=== PATIENT | female | born 1985 | race African-American/Black ===

== ENCOUNTER 2017-03-30 11:29 | Emergency (ER) | payer OTHER ==
[~2017-03-30] VITALS: Ht 167.6 cm; Wt 109.5 kg
[~2017-03-30 11:29] MED LIST: AMOX250C GTB; DENIES; PRENATALS
[2017-03-30 11:31] VITALS: Ht 167.6 cm; Wt 109.5 kg
[2017-03-30] MEDS ORDERED: KETOROLAC 30 MG INJ IV STA (12:04)
[2017-03-30] MEDS ORDERED: ONDANSETRON 4 MG INJ IV STA (12:04)
[2017-03-30] MEDS ORDERED: SOD CHLORIDE 0.9% 1,000 ML IV ONE (12:30)
[2017-03-30 12:43] LABS: BASOPHILS % 0.1 % (0.0-2.0); EOSINOPHILS # 0.1 10^3/ul (0.0-0.5); EOSINOPHILS % 0.3 % (0.0-7.0); HEMATOCRIT 39.7 % (37.0-47.0); HEMOGLOBIN 13.7 g/dl (12.0-16.0); LYMPHOCYTES # 2.4 10^3/ul (0.8-2.9); LYMPHOCYTES % 15.7 % (15.0-51.0); MEAN CORPUSCULAR HEMOGLOBIN 29.7 pg (29.0-33.0); MEAN CORPUSCULAR HGB CONC 34.5 g/dl (32.0-37.0); MEAN CORPUSCULAR VOLUME 86.1 fl (82.0-101.0); MONOCYTE # 1.5 10^3/ul (0.3-0.9); MONOCYTES % 9.8 % (0.0-11.0); NEUTROPHIL # 11.2 10^3/ul (1.6-7.5); NEUTROPHILS % 73.7 % (39.0-77.0); PLATELET COUNT 265 10^3/UL (140-415); RED BLOOD COUNT 4.61 10^6/ul (4.20-5.40); RED CELL DISTRIBUTION WIDTH 12.7 % (11.5-14.5); WHITE BLOOD COUNT 15.2 10^3/ul (4.8-10.8)
[2017-03-30 13:06] LABS: ALBUMIN 4.4 g/dl (3.3-4.9); ALBUMIN/GLOBULIN RATIO 1.18; BILIRUBIN,INDIRECT 0.5 mg/dl (0-1.1); BILIRUBIN,TOTAL 0.5 mg/dl (0.2-1.3); CALCIUM 9.2 mg/dl (8.4-10.2); CREATININE 0.75 mg/dl (0.44-1.00); POTASSIUM 3.6 mmol/L (3.5-5.1); TOTAL PROTEIN 8.1 g/dl (6.1-8.1)
[2017-03-30 13:08] LABS: ADD UMIC YES; UR ASCORBIC ACID NEGATIVE (NEGATIVE); UR BACTERIA FEW /HPF (NONE SEEN); UR BILIRUBIN (Dip) NEGATIVE (NEGATIVE); UR BLOOD (Dip) 3+ mg/dL (NEGATIVE); UR CLARITY SLIGHTLY CLOUDY (CLEAR); UR COLOR YELLOW (YELLOW); UR GLUCOSE (Dip) NEGATIVE (NEGATIVE); UR KETONES (Dip) NEGATIVE (NEGATIVE); UR LEUKOCYTE ESTERASE (Dip) 2+ Leu/ul (NEGATIVE); UR NITRITE (Dip) POSITIVE (NEGATIVE); UR RBC 22 /HPF (0-5); UR SPECIFIC GRAVITY (Dip) 1.016 (1.003-1.030); UR SQUAMOUS EPITHELIAL CELL FEW /HPF (FEW); UR TOTAL PROTEIN (Dip) 1+ mg/dl (NEGATIVE); UR UROBILINOGEN (Dip) NEGATIVE (NEGATIVE)
--- NOTE | 2017-03-30 13:52 | RADRPT ---
PROCEDURE: XR Lumbar Spine 3 Views. CLINICAL INDICATION: Low back pain. TECHNIQUE: Lumbar spine study including AP, lateral and coned L5-S1 views was performed. COMPARISON: CT July 15, 2009 FINDINGS: Straightening of the normal lordosis is identified. No fractures are identified. 1.7 cm rounded foc us of sclerosis is identified in the anterior - inferior aspect of the T12 vertebral body. Fusion of the anterior aspects of the T11 and T12 vertebral bodies is identified. Severe narrowing of the T11 -12 intervertebral disc space is seen. The remaining intervertebral disc spaces appear normal. The facet joints are unremarkable. Soft tissues surrounding the spine appear normal. IMPRESSION: Straightening of the normal lordosis. This could be positional in nature. Fusion of the anterior aspects of the T11 and T12 vertebral bodies with associated severe narrowing of the T11-12 intervertebral disc space. Findings are likely sequelae of severe degenerative disc di sease. Overall appearance is similar to prior CT. However, anterior fusion is new. 1.7 cm rounded focus of sclerosis in the anterior inferior aspect of the T12 vertebral body. Finding was present on prior CT from 2009 and this may reflect a large bone island. If further characterization is needed CT or MRI could be helpful. If there is high clinical suspicion for traumatic injury, further evaluation with CT should be consi dered. RPTAT: AA .Delfino Zimmerman MD, Date Time Electronically viewed and signed by .Delfino Zimmerman MD, on 03/30/2017 13:51 .P/
--- NOTE | 2017-03-30 13:53 | RADRPT ---
PROCEDURE: CT Abdomen and pelvis without contrast. CLINICAL INDICATION: Left lower quadrant abdominal pain TECHNIQUE: CT scan of the abdomen and pelvis without contrast was performed on a multidetector hig h-resolution CT scan. . Coronal and sagittal reformatted images were obtained from the axial [facility] e images. Standard CT scan of the abdomen pelvis without contrast protocols were performed. The total exam CTDI equals 23.08 mGy and the total exam DLP equals 1429.14 mGy-cm. One or more of the following dose reduction techniques were used: - Automated exposure control. - Adjustment of the mA and/or kV according to patient size. Use of iterative reconstruction technique. COMPARISON: None. FINDINGS: The kidneys are normal in size without hydronephrosis or intra renal masses bilaterally. There is mi ld bilateral medullary nephrocalcinosis. The addition there is a punctate 1 mm non-obstructing infer ior left renal calcified calculus. No other calcified renal calculi bilaterally. In the mid left ure ter is a punctate 2 mm calcified calculus with minimal dilation of the proximal left ureter. There i s mild left periureteral induration as well as trace fluid in the left posterior pararenal space. Th e more distal left ureter is not optimally visualized but those portions atrophy seen are unremarkab le. No evidence of right ureteral calcified calculi. Urinary bladder is contracted but otherwise unr emarkable. The uterus is anteverted anteflexed but otherwise unremarkable. No adnexal masses. Negative for intr a-abdominal free air free fluid abscesses or lymphadenopathy. The liver spleen pancreas adrenal glands and gallbladder are unremarkable. Negative for biliary duct al dilation. The stomach, small bowel, large bowel and appendix are unremarkable. The aorta is unremarkable. Lung bases are unremarkable. There are degenerative changes lower thoraci c and lumbar spine but no acute osseous findings or osteoblastic/osteolytic lesions. Partial fusion of the anterior T11-T12 disc level. IMPRESSION: 1. In the left mid ureter is a 2 mm calcified calculus with minimal dilatation of the proximal left ureter and left periureteral induration and trace fluid in the left posterior pararenal space. No e vidence of left hydronephrosis. 2. Mild bilateral medullary nephrocalcinosis. Additional punctate non-obstructing inferior left roselia al 1 mm calcified calculus. No evidence of right obstructive uropathy. 3. Unremarkable appendix. No gastrointestinal disease. RPTAT:AAJJ Physician Nuzhat Date Time Electronically viewed and signed by Dorota Martin Physician on 03/30/2017 13:52 BM/
[2017-03-30] MEDS ORDERED: CEFTRIAXONE 1 GM/50 ML (PMX) 50 ML IVPB ONE (14:30)
[2017-03-30] MEDS ORDERED: TAMS-14 PO (14:47)
[2017-03-30] MEDS ORDERED: NAPR-260 PO (14:47)
[2017-03-30] MEDS ORDERED: CIPR500T4 PO (14:52)
[2017-03-30 15:45] VITALS: BP 120/71; PULSE 104; RESP 20; TEMP 98.1
--- NOTE | 2017-03-30 17:01 | ERD ---
ER Documentation Chief Complaint Date/Time DATE: 03/30/17 TIME: 16:46 Chief Complaint COMPLAINS OF ABDOMINAL PAIN x 3 Days HPI 31-year-old female patient with no significant past medical history presents to the ED complaining of left-sided back pain that radiated to her abdomen that started yesterday. Reports that she is also has a fever and chills. States that she has felt nauseous but denies any vomiting. Reports that she also has dysuria. Denies any hematuria, urgency, frequency. States that she has had back pain for 3 years and states that this feels different. Reports that she still has some right-sided back pain that radiates down her right leg and feels like a shooting sensation. States that she has been taking Tylenol and Soma without relief of her symptoms. Denies any vaginal bleeding, vaginal discharge , diarrhea, constipation, chest pain, shortness of breath. Denies any saddle anesthesia, urine or bowel incontinence, urinary retention. ROS All systems reviewed and are negative except as per history of present illness. Medications Home Meds Active Scripts Ciprofloxacin Hcl* (Ciprofloxacin Hcl*) 500 Mg Tablet, 500 MG PO BID for 10 Days , TAB Prov:SHABNAM CONKLIN PA-C 03/30/17 Tamsulosin Hcl* (Flomax*) 0.4 Mg Cap.er.24h, 0.4 MG PO QPM, #30 CAP Prov:SHABNAM CONKLIN PA-C 03/30/17 Naproxen* (Naprosyn*) 500 Mg Tablet, 500 MG PO BID Y for PAIN AND/OR INFLAMMATION, #30 TAB Prov:SHABNAM CONKLIN PA-C 03/30/17 Reported Medications Amoxicillin* (Amoxicillin*) 250 Mg Cap, 250 MG GTB Q8, #1 08/02/13 [Prenatals] No Conflict Check 12/29/12 [Denies] No Conflict Check 07/15/09 Allergies Allergies: Coded Allergies: No Known Drug Allergies (Verified Allergy, Mild, 12/29/12) PMhx/Soc History of Surgery: No Anesthesia Reaction: No Hx Neurological Disorder: No Hx Respiratory Disorders: No Hx Cardiac Disorders: No Hx Psychiatric Problems: No Hx Miscellaneous Medical Probl: No Hx Alcohol Use: No Hx Substance Use: No Hx Tobacco Use: No Physical Exam Vitals Vital Signs Date Time Temp Pulse Resp B/P Pulse Ox O2 Delivery O2 Flow Rate FiO2 03/30/17 15:45 98.1 104 20 120/71 100 Room Air 03/30/17 11:31 99.2 133 20 121/74 99 Physical Exam Const: Ebj-ehp-uykzcrmew, well-nourished. In no acute distress. Head: Atraumatic, normocephalic Eyes: Normal Conjunctiva without injection. No purulent discharge. ENT: Normal external ear, nose. Moist oropharynx without tonsillar exudates. Non -erythematous pharynx. Uvula midline. No drooling. No trismus. Neck: No cervical midline tenderness. Full range of motion. No meningismus. No cervical lymphadenopathy. No JVD. Resp: Clear to auscultation bilaterally. No wheezing, rhonchi, rales, or crackles. No accessory muscle use. No retractions. Cardio: Regular rate and rhythm. No murmurs, rubs or gallops. Abd: Soft, nontender, non distended. Normal bowel sounds. No palpable masses. No rebound tenderness. No guarding. Negative McBurney's point. Negative psoas sign. Negative obturator sign. Skin: No petechiae or rashes Back: Slight midline tenderness. No CVA tenderness. Positive right straight leg test. Ext: No cyanosis, or edema. Neur: Awake and alert. Normal gait. Normal coordination. Psych: Normal Mood and Affect Result Diagram: 03/30/17 1230 03/30/17 1230 Results 24 hrs Laboratory Tests Test 03/30/17 12:26 03/30/17 12:30 Urine Color YELLOW Urine Clarity SLIGHTLY CLOUDY Urine pH 6.0 Urine Specific [place] 1.016 Urine Ketones NEGATIVEmg/dL Urine Nitrite POSITIVEmg/dL Urine Bilirubin NEGATIVEmg/dL Urine Urobilinogen NEGATIVEmg/dL Urine Leukocyte Esterase 2+Ebenezer/ul Urine Microscopic RBC 22/HPF Urine Microscopic WBC 12/HPF Urine Squamous Epithelial Cells FEW/HPF Urine Bacteria FEW/HPF Urine Hemoglobin 3+mg/dL Urine Glucose NEGATIVEmg/dL Urine Total Protein 1+mg/dl White Blood Count 15.210^3/ul Red Blood Count 4.6110^6/ul Hemoglobin 13.7g/dl Hematocrit 39.7% Mean Corpuscular Volume 86.1fl Mean Corpuscular Hemoglobin 29.7pg Mean Corpuscular Hemoglobin Concent 34.5g/dl Red Cell Distribution Width 12.7% Platelet Count 63802^3/UL Mean Platelet Volume 10.0fl Neutrophils % 73.7% Lymphocytes % 15.7% Monocytes % 9.8% Eosinophils % 0.3% Basophils % 0.1% Nucleated Red Blood Cells % 0.0/100WBC Neutrophils # 11.210^3/ul Lymphocytes # 2.410^3/ul Monocytes # 1.510^3/ul Eosinophils # 0.110^3/ul Basophils # 0.010^3/ul Nucleated Red Blood Cells # 0.010^3/ul Sodium Level 140mmol/L Potassium Level 3.6mmol/L Chloride Level 103mmol/L Carbon Dioxide Level 26mmol/L Anion Gap 15 Blood Urea Nitrogen 7mg/dl Creatinine 0.75mg/dl Glucose Level 104mg/dl Calcium Level 9.2mg/dl Total Bilirubin 0.5mg/dl Direct Bilirubin 0.00mg/dl Indirect Bilirubin 0.5mg/dl Aspartate Amino Transf (AST/SGOT) 24IU/L Alanine Aminotransferase (ALT/SGPT) 41IU/L Alkaline Phosphatase 69IU/L Total Protein 8.1g/dl Albumin 4.4g/dl Globulin 3.70g/dl Albumin/Globulin Ratio 1.18 Lipase 44U/L Current Medications Medications (Trade) Dose Ordered Sig/Lorenza Route PRN Reason Start Time Stop Time Status Last Admin Dose Admin Ondansetron HCl (Zofran Inj) 4 mg ONCE STAT IV 03/30/17 12:04 03/30/17 12:11 DC 03/30/17 12:28 Ketorolac Tromethamine 30 mg 30 mg ONCE STAT IV 03/30/17 12:04 03/30/17 12:11 DC 03/30/17 12:28 Sodium Chloride 1,000 ml @ 1,000 mls/hr Q1H ONCE IV 03/30/17 12:30 03/30/17 13:29 DC 03/30/17 12:31 Ceftriaxone Sodium (Rocephin) 50 ml @ 100 mls/hr ONCE ONCE IVPB 03/30/17 14:30 03/30/17 14:59 DC 03/30/17 14:54 Procedures/MDM 31 year-old female patient with a chronic history of back pain presents the ED complaining of left-sided back pain that radiates to her abdomen with dysuria. Patient is afebrile and nontoxic-appearing. Patient is tachycardic which is likely secondary to her pain. Patient was further worked up with CBC, CMP, lipase, UA, CT abdomen and pelvis without contrast. Patient's pain and symptoms have improved after treatment with 1 L Normal saline, 30 mg IV Ketoralac, 4 mg IV Zofran. CBC: Leukocytosis of 15.2. No e/o of systemic infection. No e/o anemia. CMP: No e/o severe acidosis, alkalosis, renal failure, diabetic ketoacidosis, liver disease Lipase within normal limits. Urine: Positive nitrite, 2+ leukocyte esterase with 12 WBC, 3+ hematuria with 22 WBC Urine : Negative PROCEDURE: CT Abdomen and pelvis without contrast. CLINICAL INDICATION: Left lower quadrant abdominal pain TECHNIQUE: CT scan of the abdomen and pelvis without contrast was performed on a multidetector high-resolution CT scan. . Coronal and sagittal reformatted images were obtained from the axial source images. Standard CT scan of the abdomen pelvis without contrast protocols were performed. The total exam CTDI equals 23.08 mGy and the total exam DLP equals 1429.14 mGy- cm. One or more of the following dose reduction techniques were used: - Automated exposure control. - Adjustment of the mA and/or kV according to patient size. Use of iterative reconstruction technique. COMPARISON: None. FINDINGS: The kidneys are normal in size without hydronephrosis or intra renal masses bilaterally. There is mild bilateral medullary nephrocalcinosis. The addition there is a punctate 1 mm non-obstructing inferior left renal calcified calculus. No other calcified renal calculi bilaterally. In the mid left ureter is a punctate 2 mm calcified calculus with minimal dilation of the proximal left ureter. There is mild left periureteral induration as well as trace fluid in the left posterior pararenal space. The more distal left ureter is not optimally visualized but those portions atrophy seen are unremarkable. No evidence of right ureteral calcified calculi. Urinary bladder is contracted but otherwise unremarkable. The uterus is anteverted anteflexed but otherwise unremarkable. No adnexal masses. Negative for intra-abdominal free air free fluid abscesses or lymphadenopathy. The liver spleen pancreas adrenal glands and gallbladder are unremarkable. Negative for biliary ductal dilation. The stomach, small bowel, large bowel and appendix are unremarkable. The aorta is unremarkable. Lung bases are unremarkable. There are degenerative changes lower thoracic and lumbar spine but no acute osseous findings or osteoblastic/osteolytic lesions. Partial fusion of the anterior T11-T12 disc level. IMPRESSION: 1. In the left mid ureter is a 2 mm calcified calculus with minimal dilatation of the proximal left ureter and left periureteral induration and trace fluid in the left posterior pararenal space. No evidence of left hydronephrosis. 2. Mild bilateral medullary nephrocalcinosis. Additional punctate non- obstructing inferior left renal 1 mm calcified calculus. No evidence of right obstructive uropathy. 3. Unremarkable appendix. No gastrointestinal disease. PROCEDURE: XR Lumbar Spine 3 Views. CLINICAL INDICATION: Low back pain. TECHNIQUE: Lumbar spine study including AP, lateral and coned L5-S1 views was performed. COMPARISON: CT July 15, 2009 FINDINGS: Straightening of the normal lordosis is identified. No fractures are identified. 1.7 cm rounded focus of sclerosis is identified in the anterior - inferior aspect of the T12 vertebral body. Fusion of the anterior aspects of the T11 and T12 vertebral bodies is identified. Severe narrowing of the T11-12 intervertebral disc space is seen. The remaining intervertebral disc spaces appear normal. The facet joints are unremarkable. Soft tissues surrounding the spine appear normal. IMPRESSION: Straightening of the normal lordosis. This could be positional in nature. Fusion of the anterior aspects of the T11 and T12 vertebral bodies with associated severe narrowing of the T11-12 intervertebral disc space. Findings are likely sequelae of severe degenerative disc disease. Overall appearance is similar to prior CT. However, anterior fusion is new. 1.7 cm rounded focus of sclerosis in the anterior inferior aspect of the T12 vertebral body. Finding was present on prior CT from 2009 and this may reflect a large bone island. If further characterization is needed CT or MRI could be helpful. If there is high clinical suspicion for traumatic injury, further evaluation with CT should be considered. Symptoms are likely secondary to sciatica as well as left nephrolithiasis with a urinary tract infection. Patient is afebrile. Low suspicion for septic renal stone, ectopic , ovarian torsion, gastritis, GERD, peptic ulcer disease, cholecystitis, choledocholithiasis, cholangitis, pancreatitis, appendicitis, bowel obstruction, ileus, volvulus, nephrolithiasis, pyelonephritis, hepatitis, perforated viscus, diverticulitis, strangulated/ incarcerated hernia, DKA, acute abdomen, mesenteric ischemia or other emergent conditions. Patient is ambulating here in the ED without difficulty. Denies saddle anesthesia, numbness or tingling, urine or bowel incontinence, weakness. Low suspicion for cauda equina syndrome, cord compression, nephrolithiasis, aortic aneurysm, aortic dissection, epidural abscess, spinal hematoma, malignancy, pyelonephritis, or other emergent conditions. Discharge medications: Keflex, Tamsulosin, Naproxen Follow up with primary care physician in 1-2 days for referral to graduate teaching associate. Instructed patient to return to the ED sooner for any worsening symptoms such as fever, worsening pain, etc. Patient's questions were answered. Patient understood and agreed with discharge plan. Patient discharged stable. Departure Diagnosis: Primary Impression: Abdominal pain Abdominal location: unspecified location Qualified Code: R10.9 - Abdominal pain, unspecified abdominal location Additional Impression: Back pain Back pain location: back pain in unspecified location Chronicity: unspecified Back pain laterality: unspecified Qualified Code: M54.9 - Back pain, unspecified back location, unspecified back pain laterality, unspecified chronicity Condition: Stable Patient Instructions: Urinary Tract Infections in Women, Understanding Sciatica , Back Pain W/ Sciatica, Kidney Stone W/ Colic Referrals: MARGARITA DALAL (PCP) [facility] YOU HAVE RECEIVED A MEDICAL SCREENING EXAM AND THE RESULTS INDICATE THAT YOU DO NOT HAVE A CONDITION THAT REQUIRES URGENT TREATMENT IN THE EMERGENCY DEPARTMENT. FURTHER EVALUATION AND TREATMENT OF YOUR CONDITION CAN WAIT UNTIL YOU ARE SEEN IN YOUR DOCTORS OFFICE WITHIN THE NEXT 1-2 DAYS. IT IS YOUR RESPONSIBILITY TO MAKE AN APPOINTMENT FOR FOLOW-UP CARE. IF YOU HAVE A PRIMARY DOCTOR --you should call your primary doctor and schedule an appointment IF YOU DO NOT HAVE A PRIMARY DOCTOR YOU CAN CALL OUR PHYSICIAN REFERRAL HOTLINE AT IF YOU CAN NOT AFFORD TO SEE A PHYSICIAN YOU CAN CHOSE FROM THE FOLLOWING [facility] CLINICS [facility] [address] [facility] [address] [email or web address] [address] [facility] [address] [facility]. [facility] [address] [facility]. [facility] [address] [facility]. [facility] YOU HAVE RECEIVED A MEDICAL SCREENING EXAM AND THE RESULTS INDICATE THAT YOU DO NOT HAVE A CONDITION THAT REQUIRES URGENT TREATMENT IN THE EMERGENCY DEPARTMENT. FURTHER EVALUATION AND TREATMENT OF YOUR CONDITION CAN WAIT UNTIL YOU ARE SEEN IN YOUR DOCTORS OFFICE WITHIN THE NEXT 1-2 DAYS. IT IS YOUR RESPONSIBILITY TO MAKE AN APPOINTMENT FOR FOLOW-UP CARE. IF YOU HAVE A PRIMARY DOCTOR --you should call your primary doctor and schedule and appointment IF YOU DO NOT HAVE A PRIMARY DOCTOR YOU CAN CALL OUR PHYSICIAN REFERRAL HOTLINE AT . IF YOU CAN NOT AFFORD TO SEE A PHYSICIAN YOU CAN CHOSE FROM THE FOLLOWING [facility]: [facility] [id number] [place] [id number] [facility] [address] [place] [place] [id number] [place] [address] [address] [place] [address] [facility] Urgent Care 7 a.m.- 11 p.m. Every Day of the Week NO APPOINTMENT OR AUTHORIZATION NEEDED SO [facility] Hours: Mon-Fri 9:00 AM - 5:00 PM Additional Instructions: Call your primary care doctor TOMORROW for an appointment during the next 1-2 days for a referral to see a urologist as well as an orthopedic physician. See the doctor sooner or return here if your condition worsens before your appointment time. SHABNAM CONKLIN PA-C Mar 30, 2017 16:56
== END 2017-03-30 15:25 | disposition home or self-care (01) ==
LOC: FTE 11:29
DX: R10.9 Unspecified abdominal pain (principal); M54.9 Dorsalgia, unspecified
CPT/HCPCS: 36415; 72100; 74176; 80053; 81001; 83690; 85025; 96374; 96375; J0696; J1885; J2405; J7030; Z7502

== ENCOUNTER 2018-01-28 20:29 | Emergency (ER) | END 2018-01-28 22:21 | disposition home or self-care (01) ==

== ENCOUNTER 2018-02-19 17:14 | Emergency (ER) | END 2018-02-19 20:01 | disposition home or self-care (01) ==